=== PATIENT | female | born 1945 | race Caucasian/White ===

== ENCOUNTER → 2018-02-05 07:30 | Outpatient (CLI) | payer OTHER, SELFPAY ==
[2018-02-05 07:57] LABS: Add Manual Diff / Slide Review NO; Basophils Percent Auto 1.3 % (0-2); Eosinophils Percent Auto 3.4 % (2-4); Hemoglobin 14.7 g/dL (12.0-16.0); Lymphocytes Percent Auto 39.1 % (25-40); Mean Corpuscular HGB Conc 34.2 % (30-36); Mean Corpuscular Hemoglobin 29.2 PG (26-34); Mean Corpuscular Volume 85.5 fL (80-100); Monocytes Percent Auto 10.9 % (3-14); Neutrophils Absolute Auto 2400 /uL (3000-5900); Neutrophils Percent Auto 45.3 % (50-75); Platelet Count 173 X10^3/uL (150-400); Red Blood Cell Count 5.03 X10^6/uL (4.0-5.2); White Blood Cell Count 5.4 X10^3/uL (4.5-11.0)
[2018-02-05 08:14] LABS: Carbon Dioxide 30 mmol/L (22-32); Chloride 108 mmol/L (98-107); HEMOLYSIS < 15 (0-50); Sodium 146 mmol/L (137-145)
== END ==
PROVIDERS: Visit Provider Orthopaedic Surgery
DX: Z01.818 Encounter for other preprocedural examination (principal); Z01.812 Encounter for preprocedural laboratory examination; I10 Essential (primary) hypertension
CPT/HCPCS: 36415; 80051; 85025; 93005

== ENCOUNTER 2018-03-01 07:42 | Inpatient (IN) | payer OTHER, SELFPAY ==
[2018-02-11 09:03] VITALS: BMI 35.7
[2018-03-01] VITALS (13 sets, daily range): BP systolic 95–136; BP diastolic 56–77; PULSE 57–70; RESP 8–20; TEMP 35.8–37.2; O2SAT 92–97; BMI 35.7
--- NOTE | 2018-03-01 06:30 | DI.RAD.S_ITS ---
PROCEDURE: XR KNEE RT 1TO2V INDICATIONS: post operative right knee TECHNIQUE: 2 view(s) of the knee acquired. COMPARISON: [facility] [place], [place], XR KNEE STANDING BILATERAL, 01/10/2018, 10:08. FINDINGS: Bones: Patient is status post knee joint arthroplasty. Hardware components are in expected positions. Visualized bony structures are intact. Soft tissues: Overlying postoperative changes are noted. Skin talon are seen overlying anterior margin of the knee. Expected there is a soft tissue edema and air are noted. No unexpected radiopaque foreign bodies are apparent. IMPRESSION: Expected postsurgical changes related to a total right knee arthroplasty. Dictated by: Levi Simons M.D. on 03/01/2018 at 13:12 Approved by: Levi Simons M.D. on 03/01/2018 at 13:13
[2018-03-01] MEDS: LACTATED RINGERS 1,000 ML 42 ML IV (08:50)
[2018-03-01] MEDS: ACETAMINOPHEN 325 MG TABLET 975 MG PO ×3 (08:53→20:47)
[2018-03-01] MEDS: CELECOXIB 200 MG CAPSULE PO (08:53)
[2018-03-01] MEDS: PREGABALIN 75 MG CAPSULE PO (08:54)
--- NOTE | 2018-03-01 09:46 | PM.PREOP ---
Pre-operative Note Interval Note Pre-op Check: Yes History & Physical Reviewed by Physician and Yes Exam Performed Changes: No
--- NOTE | 2018-03-01 09:46 | PM.PREOP ---
Pre-operative Note Interval Note Pre-op Check: Yes History & Physical Reviewed by Physician and Yes Exam Performed Changes: No
--- NOTE | 2018-03-01 09:47 | PM.OP.1 ---
Operative Date/Time/Diagnoses Date of procedure: 03/01/18 Time of procedure: 12:28 Pre-op diagnosis: Right knee osteoarthritis Post-op diagnosis: same Procedure & Clinicians Procedure: Right total knee arthroplasty Same procedure as scheduled: Yes Indications: The patient presents today for total knee arthroplasty after failure of conservative treatment. The nature of the procedure including the risks and benefits, alternatives, postoperative course and expected outcome were discussed and all questions answered. Consent was obtained. Operative site confirmed and marked. Surgeon: Cordell Robertson University Extension Specialist: Zulma Tom Anesthesia Type: General, Spinal and Local Operative Notes Findings: Osteoarthritis Closure Type: primary Specimen(s): none sent Implants & Drains: Collado and Nephew Anam BCS: 7 femoral component, 5 tibial component, 9 mm BCS polyethylene tray and 32 x 9 mm round patella Applied: implant(s) Estimated Blood Loss (mL): 50 Blood products transfused: none Tourniquet time (min): 28 Procedure in detail: The patient was taken to the operative suite and placed under spinal anesthesia. The patient was given prophylactic antibiotics prior to surgery. The patient was also given tranexamic acid, 1 g, just prior to surgery for postoperative hemostasis. The lateral knee was prepped and the joint injected with 20 mL of 1% Lidocaine with epinephrine. The knee was then prepped and draped in usual sterile fashion. The leg was exsanguinated with an Esmarch dressing and the tourniquet raised to 250 torr. A 15 cm anterior incision was made. Next a medial trivector arthrotomy was made. The extensor mechanism was marked to ensure accurate repair. Initial exposing dissection was carried out medially and laterally. The knee was then extended and the patellar thickness was measured and a cut made removing approximately 9 mm of bone. The patella was then sized and drilled. Some excess lateral bone was excised and the patellofemoral ligament released. The knee was then flexed and the intramedullary femoral guide jr placed. The distal femoral cut was made in 6 ? of valgus at the + 0 position. The femoral size was measured and the appropriate cutting block was then placed and the anterior, posterior and chamfer cuts made. The extra medullary tibial alignment jr was then placed along the anatomic axis of the tibia appropriating the normal slope. The guide was set to remove approximately 8 mm from the less affected medial side. The proximal tibial cut was then made with an oscillating saw. All meniscus and bony debris was then removed. Flexion extension gaps were checked. The knee was extremely tight laterally especially in extension. A fairly extensive release of the lateral tissues was done using a 15 blade in a pie crust technique. This nicely balance the knee in flexion and extension. The soft tissues were then injected with a combination of 20 mL of half percent Marcaine with epinephrine and 20 mL of Exparel. The trial components were then placed. The knee went into full extension and flexion beyond 120?. There was excellent medial- lateral balance throughout motion. Patellar tracking was excellent. The trial components were removed and the knee was cleansed with Pulsavac irrigation and dried. The final components were cemented in with high viscosity vacuum mixed bone cement with antibiotics. The knee was held in extension and the patellar clamp until the cement had adequately cured. The knee was irrigated and inspected for any further debris. The knee was then irrigated with dilute Betadine solution. The extensor mechanism was closed with 5 interrupted #1 Vicryl sutures in 90 degrees of flexion. The joint was then injected with a combination of 1 g of tranexamic acid and 20 mL of quarter percent Marcaine with epinephrine. The subcutaneous tissue was closed with 2-0 Vicryl. The skin was closed with talon and surgical adhesive. An Aquacell dressing and Dany wrap were then applied. The patient tolerated the procedure well and was returned to recovery room in good condition. Condition: stable Disposition: PACU Plan for aftercare: Standard postoperative protocol for total knee arthroplasty.
[2018-03-01] MEDS: CLINDAMYCIN 900 MG/50 ML PIGGYBACK 50 MG IV (10:59)
[2018-03-01] MEDS: TRANEXAMIC ACID 1,000 MG VIAL 2000 MG INJ (11:05)
[2018-03-01] MEDS: LIDOCAINE 1% W/EPI INJ 20 ML INJ (11:10)
--- NOTE | 2018-03-01 11:42 | SUR.OPER ---
Supine on padded OR bed. Pillow under head, arms secured on padded armboards <90 degree abduction. Safety belt across torso. Non-operative leg secured with tape over blanket over lower leg. Operative leg secured in DeMayo/Kush positioner. Foam padded brace at thigh of operative leg.
[2018-03-01] MEDS: BUPIVACAINE LIPOSOME 266 MG/20 ML VIAL INJ (11:52)
[2018-03-01] MEDS: POVIDONE-IODINE 15 ML, SODIUM CHLORIDE 0.9% 250 ML TOP (11:55)
[2018-03-01] MEDS: BUPIVACAINE 0.5% W/ EPI (PF) 10 ML, TRANEXAMIC ACID 1,000 MG, SODIUM CHLORIDE 0.9% 20 ML INJ (12:00)
[2018-03-01] MEDS: BUPIVACAINE 0.5% W/ EPI (PF) 20 ML, BUPIVACAINE LIPOSOME 266 MG, SODIUM CHLORIDE 0.9% 8... INJ (12:00)
--- NOTE | 2018-03-01 13:22 | SUR.PHASEI ---
tOTAL IV FLUID 1400ML LR.
--- NOTE | 2018-03-01 14:09 | PC.NURSE ---
1345 Pt arrived from PACU via bed post op TKA. Pt A & O X3. Family at bedside. Pt has a saline lock. scd placed on BLE. Pt has a pacemaker, placed in 2013. Pt unable to move toes yet right foot. 1415, reported off to JAMES Billy.
[2018-03-01] MEDS: LACTATED RINGERS 1,000 ML 125 ML IV ×2 (14:26→23:49)
[2018-03-01] MEDS: ONDANSETRON 4 MG/2 ML INJ IV ×2 (14:27→22:35)
--- NOTE | 2018-03-01 15:58 | PT.IIE ---
Current Diagnoses Unilateral primary osteoarthritis, right knee (03/01/18) Surgery Performed Operation Date: 03/01/18 10:00 Actual Procedures p Total Knee Arthroplasty(Right) - Cordell Robertson MD Surgical History (Last Updated 02/12/18 @ 09:19 by Xiao Rose, RN) H/O cardiac radiofrequency ablation (Acute ~2013) H/O: (Acute) History of bladder suspension procedure (Acute) Medical History (Last Updated 02/12/18 @ 09:28 by Xiao Rose RN) Arthritis (Acute) Atrial flutter (Acute ~03/2012) Bruises easily (Acute) Cataract (lens) fragments in eye following cataract surgery, bilateral (Acute) Cholelithiasis (Acute) Collar bone fracture (Acute) Constipation (Acute) Diverticulitis (Acute) GERD (gastroesophageal reflux disease) (Acute) History of colitis (Acute) History of hypothyroidism (Acute) History of hysterectomy (Acute) Hyperlipidemia (Acute) Hypertension (Acute) Laceration of head (Acute) Mobitz II (Acute) Pacemaker (Acute ~07/2012) Paroxysmal A-fib (Acute) Shingles (herpes zoster) polyneuropathy (Acute) Staph infection (Acute) Physical Therapy Inpatient Evaluation/Re-Eval M1 PT/OT-IP Prior Functional Status Start: 03/01/18 17:40 Freq: Status: Active Protocol: Document 03/01/18 15:58 RCC (Rec: 03/01/18 17:54 [facility] [email or web address]) Medical Review Prior Functional Status Medical History Reviewed Yes Communication WNL Mobility and Gait indep. ambulator without device Activities of Daily Living and IADL's indep. ADLs Social History Household Members spouse Living Arrangements House Number of Floors (Floors) One Floor Number of Stairs To Enter/Railing? one step up to enter/exit (6-7 ) Home Equipment Front Wheel Walker Additional Social History Comment [employer]. M2 PT-IP Current Condition Start: 03/01/18 17:40 Freq: Status: Active Protocol: Document 03/01/18 15:58 RCC (Rec: 03/01/18 17:54 RCC [email or web address]) Physical Therapy Current Condition Current Condition Evaluation Date 03/01/18 Treatment Diagnosis R TKA 03/01/18, impaired mobility and gait Onset Date 03/01/18 Weight Bearing Status Weight Bearing Status Weight Bear as Tolerated M3 PT-IP Subjective Start: 03/01/18 17:40 Freq: Status: Active Protocol: Document 03/01/18 15:58 RCC (Rec: 03/01/18 17:54 [facility] [email or web address]) Subjective Physical Therapy Visit Type Type Initial Evaluation Visit Start Time 15:20 Visit Stop Time 15:58 Total Visit Minutes 38 Number of CRISIS INTERVENTION COUNSELOR Visits 0 Physical Therapy Visit Comments Patient Comments Pt denies pain at this time Patient Goals to be able to safely go home Therapy Pain Assessment Pain Present Pain Present Denied Pain M4 PT-IP Mobility and Gait Start: 03/01/18 17:40 Freq: Status: Active Protocol: Document 03/01/18 15:58 RCC (Rec: 03/01/18 17:54 RCC [email or web address]) PT-Bed Mobility Assessment Supine to Sit Supine to Sit Moderate Assistance 1 Person Assistance Sit to Supine Sit to Supine Moderate Assistance 1 Person Assistance Scooting Scooting to Edge of Bed Contact Guard Assistance PT-Transfer Assessment Sit to and From Stand Sit to and from Stand Contact Guard Assistance 1 Person Assistance Use of Upper Extremities Equipment Transfer Assistive Device Gait Belt Front Wheeled Walker Comments Mobility Comments pt c/o dizziness upon standing , requested to sit back down. Pt then taken sit to supine and BP checked immediately ( 129/70, VA 60 bpm). BP supine before session 121/ 73, VA 60 bpm BP sitting 128/74, VA 61 bpm No c/o dizziness at rest, mild in sitting but subsided <30 sec, high levels of dizziness in standing. Gait Assessment Comments Gait Comments unable to perform d/t dizziness PT-Balance Assessment Standing Balance and Reactions Static Standing Balance Ability Good Dynamic Standing Balance Ability Fair Device Used FWW M5 PT-IP Objective Assessments Start: 03/01/18 17:40 Freq: Status: Active Protocol: Document 03/01/18 15:58 [facility] (Rec: 03/01/18 17:54 [facility] [email or web address]) Orientation Orientation/Cognition Level of Alertness Alert Orientation Name Age Birthday Month Date Year Day of Week Place Situation Gross Range of Motion Lower Extremity ROM Assessment Right Impaired Impairments R knee AROM 8-90 degrees Strength Lower Extremity Strength Assessment Right Impaired Hip flexion 3+/5 Knee flexion 3/5, extension 3/5 Ankle DF 4/5 Sensation Assessment Sensation Light Touch Impaired Comments Sensation Comments impaired in the R toes, but able to flex/extend them M6 PT-IP Treatment Start: 03/01/18 17:40 Freq: Status: Active Protocol: Document 03/01/18 15:58 RCC (Rec: 03/01/18 17:54 RCC [email or web address]) Physical Therapy Treatment Exercises Exercises Ankle Pumps Quad Sets Short Arc Quads Education Education Provided Post-Op Packet Safety M7 PT-IP Assessment and Plan Start: 03/01/18 17:40 Freq: Status: Active Protocol: Document 03/01/18 15:58 RCC (Rec: 03/01/18 17:54 RCC [email or web address]) PT Summary Assessment and Plan Potential Rehabilitation Potential Good Status of Condition at Evaluation Evolving Summary Impairments Pain ROM Strength Balance Bed Mobility Transfers Gait Activity Tolerance Assessment Summary Same day post-op R TKA. Pt was able to lift her RLE off of the bed with a SLR, but required manual assistance for bed mobility. She had mild dizziness in sitting but subsided rapidly, but c/o high levels of dizziness upon standing. Her BP was WNL the entire session, however, given her state of dizziness she was unable to ambulate this session. Family appears to have some concern about d/c too early during this hospital stay. Pt will need to be able to ambulate safe household distances and manage a step up /down before being cleared by PT. Expect her to be able to d /c home, but possibly POD #3 vs POD #2 if unable to achieve goals. Goals Bed Mobility Goal Contact Guard Assistance Transfer Goal Standby Assistance Gait Goal Standby Assistance Gait Distance 150 Other Goals up/down 1 step up with CGA and FWW Days to Meet Goals 2 Frequency of Treatment Frequency Of Treatment Twice a Day Treatment Plan Physical Therapy Treatment Plan Bed Mobility Training Transfer Training Gait Training Therapeutic Exercise Balance Retraining Post Op Education Discharge Planning Hot or Cold Pack Neuromuscular Re-ed Manual Therapy Other Recommendations and Next Treatment gait, bed mobility, CG Focus training and step up training prior to d/c. Recommendations To Nursing Amount of Assist Needed 1 Person Assist Discharge Recommendations PT Discharge Recommendations Home with Assistance Outpatient PT
[2018-03-01] MEDS: LORATADINE 10 MG TABLET PO (17:13)
[2018-03-01] MEDS: CLINDAMYCIN 600 MG/50 ML PIGGYBACK 50 MG IV (19:27)
[2018-03-01] MEDS: FLECAINIDE 100 MG TABLET 150 MG PO (20:47)
[2018-03-01] MEDS: ASPIRIN EC 81 MG TABLET PO (20:47)
--- NOTE | 2018-03-01 22:43 | PC.NURSE ---
03/013: pt alert and oriented x4, VSS, BP was slightly low early in shift, held metropolol. Needed some supplemental O2 early in shift but was able to wean off by end of shift, 94-95% on RA. Incentive spirometer at bedside and pt has been utilizing properly. Pt without void as of 1999, bladder scan performed with >680ml reported, had pt try to void on bedpan, unsuccessful, straight cath performed with 900ml out. Denied pain this shift, did complain of some nausea after rolling in bed to side, zofran administered.
[2018-03-02 00:04] VITALS: BP 109/56; PULSE 60; RESP 18; TEMP 36.3; O2SAT 92
[2018-03-02] MEDS: CLINDAMYCIN 600 MG/50 ML PIGGYBACK 50 MG IV (02:52)
[2018-03-02] MEDS: IBUPROFEN 600 MG TABLET PO ×2 (03:11→13:39)
[2018-03-02 06:07] VITALS: BP 100/56; PULSE 72; RESP 18; TEMP 36.3; O2SAT 92
[2018-03-02 06:16] LABS: Hematocrit 37.8 % (36-46); Hemoglobin 12.8 g/dL (12.0-16.0)
[2018-03-02 08:00] VITALS: BP 125/67; PULSE 72; RESP 16; TEMP 36.1; O2SAT 97
[2018-03-02] MEDS: LEVOTHYROXINE 125 MCG TABLET PO (08:34)
[2018-03-02] MEDS: ACETAMINOPHEN 325 MG TABLET 975 MG PO (08:34)
[2018-03-02] MEDS: POLYETHYLENE GLYCOL 3350 17 GM POWD.PACK PO (08:35)
[2018-03-02] MEDS: FLECAINIDE 100 MG TABLET 150 MG PO (08:35)
--- NOTE | 2018-03-02 08:44 | CM.DANOTE ---
Discharge Planning/Care Management DCP: assessment: Case received, EMR reviewed and met with pt's daughter Kenia/rooming in. Pt in bed and on phone. Introduced self and role. Pt is 72 year old female who admitted yesterday for a planned TKA. Surgeon: Dr. Robertson Payer: Michael ANDUJAR Pt was able to work with PT Fadi yesterday late afternoon but dizziness with sit to stand did limit what she could do. P: pt does plan for home and outpt PT when she is stable for that setting. Family will provide supportive care. Will follow prn for any needs that may arise. CM Discharge Assessment Start: 03/02/18 08:40 Freq: Status: Active Protocol: Document 03/02/18 08:40 ITV (Rec: 03/02/18 08:43 ITV [email or web address]) Discharge Planning Assessment History Provided By Patient Family Member Medical Record Prior Living Arrangements House Household Members spouse Comment peter Aquino will be helping out after d/c Independent with ADL's Yes Is patient alert and oriented? Yes DME Already Rented / Owned FWW / Walker Comment has FWW in prep for this surgery Whiteboard Updated in Patient Room with Yes name and ext. # of Corporate Librarian Review Status In Process Next Review Type Continued Stay Review Pre-Anesthesia Assessment Start: 02/11/18 09:03 Freq: Status: Active Protocol: Document 02/11/18 09:03 VLJ (Rec: 02/11/18 09:24 VLJ [email or web address]) Pre-Anesthesia Assessment Patient Also Known As (STAN Garcia Patient Information Reviewed Via Chart Review On-site Review Phone Assessment Lab Results CBC EKG Electrolytes Primary Care Provider Mirna Maria Seen Specialist in Last 12 Months Yes Specialist Seen Load Blocker Orthopedist Urologist Primary Language Telugu Delivery Recruiter Required No Height 166.37 cm Weight 98.883 kg Body Mass Index (BMI) 35.7 Hearing Ability Normal Visual Impairment Partially Limited Visual Assist Glasses Dentition Type Teeth, Natural Present Barriers to Learning Visual Other Aids No Comment Reading glasses Hx Anesthesia Reactions Yes: Paralyzed 24hours post c- section Hx Family Anesthesia Reaction No Hx Malignant Hyperthermia No Hx Blood Transfusions No Anesthesia Review Requested No Banking Teacher No alcohol intake never Smoking Status Never smoker Substance Use Type does not use Pain Present Pain Reported Comment Right knee depends on activity ; diverticuli - abd pain Musculoskeletal Symptoms Abnormal Gait Difficulty Walking Joint Pain Joint Swelling History of Falling (Recent or History of Yes ) Patient is completely paralyzed or No completely immobile Ambulatory Aid None/bed rest/nurse assist Gait/Transferring Normal/bedrest/immobile Mental Status Oriented to own ability Comment Right side doesn't work right , fell getting out of boat Is patient on oxygen? No Does patient have CARPENTER/SOB Yes: When climbing stairs Hx Sleep Apnea No Currently Taking a Beta Len Yes: Metoprolol Can You Climb a Flight of Stairs Without No SOB Hx Chest Pain No Hx SOB Yes Hx Syncope or Dizziness No Anti-Coagulant Therapy Yes: Aspirin - will check w/ manager packaging for instr Has a Load Blocker Yes: Dr. Burdick Cardiac Testing Yes: Echo & Stress 12/06 WNL Hx Pacemaker/ICD Yes: Form to chart, no rep needed Pacemaker Rep Required? No Diet Type At Home Regular Low Carb Low Fat dysphagia No Bladder Pattern Frequency Incontinent, Stress Nocturia Urgency Urinary Catheter Present No Hx Urinary Self Catheterization No Diabetes No Patient No Lactating No Hx Drug Resistant Organism No Presence of External or Internal Medical Yes: Pacemaker Devices Comment Dental implant Have you traveled outside the [facility] in the last 30 days? Marital Status Lives With spouse Prior Living Arrangements House Number of Floors (Floors) One Floor Number of Stairs To Enter/Railing? 1 step into house, no rail Support System Child/Children Spouse Does the Patient Have Assistance After Yes Surgery Patient Discharge Plan Description Return Home Feels Safe in Current Environment Yes Been Physically Hurt or Threatened By a No Person in Current Environment Do you have thoughts of harming yourself None or others? Are you currently considering suicide? No Do you have a plan to hurt yourself or No Plan others? Do You Have Any Spiritual Beliefs That No May Affect Your HC Choices? Do You Have Any Cultural Practices That No May Affect Your HC Choices? Spiritual Referral None Comment Synagogue Who Can We Speak to About Patient's Care Friends & Family Identifying Code for Release of Patient Declined Information Health Care Proxy/Next of Kin - Saúl Allenulises Health Care Proxy Phone Number [phone] H; [phone] C Emergency Contact Name Same, Son Newton Garner [phone] Emergency Contact Phone Number Same Advance Directives? No Power of Procedure Rn Yes: Saúl lauro Glez Power of Procedure Rn Name As above PAC Instructions Assistance for 24 hours post- op Do not shave/clip surgical site Durable medical equipment Medications to take/avoid Nasal antibiotic No ETOH/petroleum product on skin DOS NPO Ortho class Post-op transportation Pre-op antibiotic Pre-surgical wash Sensory aids Sturdy shoes/comfortable clothes Do not bring valuables and remove jewelry Comment check-in [id number]
[2018-03-02] MEDS: POTASSIUM CHLORIDE 20 MEQ TAB PO (09:00)
[2018-03-02] MEDS: ASPIRIN EC 81 MG TABLET PO (09:00)
--- NOTE | 2018-03-02 11:00 | PT.IPTN ---
Current Diagnoses Unilateral primary osteoarthritis, right knee (03/01/18) Surgery Performed Operation Date: 03/01/18 10:00 Actual Procedures p Total Knee Arthroplasty(Right) - Cordell Robertson MD Physical Therapy Treatment Note M2 PT-IP Current Condition Start: 03/01/18 17:40 Freq: Status: Active Protocol: Document 03/01/18 15:58 RCC (Rec: 03/01/18 17:54 RCC [email or web address]) Physical Therapy Current Condition Current Condition Evaluation Date 03/01/18 Treatment Diagnosis R TKA 03/01/18, impaired mobility and gait Onset Date 03/01/18 Weight Bearing Status Weight Bearing Status Weight Bear as Tolerated M3 PT-IP Subjective Start: 03/01/18 17:40 Freq: Status: Active Protocol: Document 03/02/18 10:48 SA (Rec: 03/02/18 11:00 SA [email or web address]) Subjective Physical Therapy Visit Type Type Treatment Note Visit Start Time 10:10 Visit Stop Time 10:40 Total Visit Minutes 30 Notes Pt agreeable to PT, family/ caregivers present for treatment. No dizziness with standing today. Number of PASSENGER CONDUCTOR Visits 1 Physical Therapy Visit Comments Patient Comments Pt denied pain at rest. Therapy Pain Assessment Pain When Pain Assessed During Mobility Pain Present Pain Present Pain Reported Location Right Knee Intensity 2 Scale Used Numeric (1 - 10) Pain Management Techniques Apply Cold Re-positioning M4 PT-IP Mobility and Gait Start: 03/01/18 17:40 Freq: Status: Active Protocol: Document 03/02/18 10:48 SA (Rec: 03/02/18 11:00 SA [email or web address]) PT-Bed Mobility Assessment Rolling Type of Rolling Roll to Right Supine to Sit Supine to Sit Contact Guard Assistance Sit to Supine Sit to Supine Contact Guard Assistance 1 Person Assistance Bedrails Scooting Scooting to Edge of Bed Contact Guard Assistance Scooting Up and Down in Bed Standby Assistance PT-Transfer Assessment Sit to and From Stand Sit to and from Stand Contact Guard Assistance 1 Person Assistance Use of Upper Extremities Equipment Transfer Assistive Device Gait Belt Front Wheeled Walker Orthotic/Prosthetic Devices or Brace: No Transfers Transfer Destination Chair Toilet Transfer Technique Stand Step Pivot Transfer Ability Level of Assist Contact Guard Assistance Comments Mobility Comments PT denied dizziness today, CGA with stand pivot transfers on /off toilet and on/off chair. Mod cues for safe technique and use of FWW. Gait Assessment Gait Gait Assistance Required: Contact Guard Assist Distance (Feet) 20 Assistive Devices Assistive Device Front Wheeled Walker Orthotic/Prosthetic Devices or Brace: No Gait Deviations General Gait Pattern Decreased Stride Length Decreased Feet Clearance Step-to Gait Factors Limiting Gait Function Factors Limiting Gait Function Decreased Activity Tolerance Decreased Strength Limited Range of Motion Comments Gait Comments Gaot trainng in room 20 feet x 4 with seated rest breaks between and cues for increased L step length/foot clearance. M5 PT-IP Objective Assessments Start: 03/01/18 17:40 Freq: Status: Active Protocol: Document 03/01/18 15:58 RCC (Rec: 03/01/18 17:54 RCC [email or web address]) Orientation Orientation/Cognition Level of Alertness Alert Orientation Name Age Birthday Month Date Year Day of Week Place Situation Gross Range of Motion Lower Extremity ROM Assessment Right Impaired Impairments R knee AROM 8-90 degrees Strength Lower Extremity Strength Assessment Right Impaired Hip flexion 3+/5 Knee flexion 3/5, extension 3/5 Ankle DF 4/5 Sensation Assessment Sensation Light Touch Impaired Comments Sensation Comments impaired in the R toes, but able to flex/extend them M6 PT-IP Treatment Start: 03/01/18 17:40 Freq: Status: Active Protocol: Document 03/02/18 10:48 SA (Rec: 03/02/18 11:00 SA [email or web address]) Physical Therapy Treatment Exercises Exercises Ankle Pumps Gluteal Sets Quad Sets Heel Slides Seated Knee Flexion/Extension Education Education Provided Post-Op Packet Safety M7 PT-IP Assessment and Plan Start: 03/01/18 17:40 Freq: Status: Active Protocol: Document 03/02/18 10:48 SA (Rec: 03/02/18 11:00 SA [email or web address]) PT Summary Assessment and Plan Potential Rehabilitation Potential Good Status of Condition at Evaluation Evolving Frequency of Treatment Frequency Of Treatment Twice a Day Treatment Plan Physical Therapy Treatment Plan Bed Mobility Training Transfer Training Gait Training Therapeutic Exercise Balance Retraining Post Op Education Discharge Planning Hot or Cold Pack Neuromuscular Re-ed Manual Therapy Other Recommendations and Next Treatment Single step to enter home, Focus attempt step up/down training. Recommendations To Nursing Amount of Assist Needed 1 Person Assist Discharge Recommendations PT Discharge Recommendations Home with Assistance Outpatient PT
--- NOTE | 2018-03-02 11:08 | PM.PNPO.1 ---
Subjective Date Patient Seen: 03/02/18 Time Patient Seen: 11:08 Interval history: POD #1 status post right total knee arthroplasty with Dr. Robertson. Pain is well controlled. Patient has been up with physical therapy yesterday but not this morning. Exam Vital Signs (past 8 hours): - 03/02/18 06:07 03/02/18 08:00 Temperature 97.4 F L 96.9 F L Pulse Rate 72 72 Respiratory Rate 18 16 Blood Pressure 100/56 L 125/67 Pulse Oximetry 92 97 Fraction of Inspired Oxygen 21 Oxygen Delivery Method Room Air Oxygen Flow Rate 0 Narrative Exam Narrative: Patient lying in bed in no acute distress. She is alert and oriented x3. Dressing is CDI. Calves are soft, compressible, nontender bilaterally. Sensation intact to light touch throughout bilateral lower extremities. Pulses are symmetrical. Objective Labs Result Diagrams: 03/02/18 05:41 Labs: Laboratory Results - last 24 hr 03/02/18 05:41 Hgb 12.8 Hct 37.8 Assessment & Plan Post-op (1) S/P total knee arthroplasty: Current Visit: Yes Status: Acute Postoperative Procedures Operation Date: 03/01/18 10:00 Actual Procedures Side Surgeon p Total Knee Arthroplasty Right Cordell Robertson MD POD #1 status post right total knee arthroplasty with Dr. Robertson. Continue current pain control. Will mobilize with physical therapy. Likely discharge today or tomorrow depending on pain control and mobilization. Quality VTE Deep Vein Thrombosis/Pulmonary Embolism Present on Admission: No
[2018-03-02 12:43] VITALS: BP 116/58; PULSE 70; RESP 16; TEMP 36.3; O2SAT 96
[2018-03-02] MEDS: diphenhydrAMINE 25 MG TABLET PO (13:39)
--- NOTE | 2018-03-02 13:50 | PT.IPTN ---
Current Diagnoses Unilateral primary osteoarthritis, right knee (03/01/18) Presence of unspecified artificial knee joint (03/01/18) Surgery Performed Operation Date: 03/01/18 10:00 Actual Procedures p Total Knee Arthroplasty(Right) - Cordell Robertson MD Physical Therapy Treatment Note M2 PT-IP Current Condition Start: 03/01/18 17:40 Freq: Status: Active Protocol: Document 03/01/18 15:58 RCC (Rec: 03/01/18 17:54 RCC [id number]) Physical Therapy Current Condition Current Condition Evaluation Date 03/01/18 Treatment Diagnosis R TKA 03/01/18, impaired mobility and gait Onset Date 03/01/18 Weight Bearing Status Weight Bearing Status Weight Bear as Tolerated M3 PT-IP Subjective Start: 03/01/18 17:40 Freq: Status: Active Protocol: Document 03/02/18 13:50 GGD (Rec: 03/02/18 14:48 GGD [id number]) Subjective Physical Therapy Visit Type Type Treatment Note Visit Start Time 13:25 Visit Stop Time 13:50 Total Visit Minutes 25 Number of ASPHALT DISTRIBUTOR TENDER Visits 2 Physical Therapy Visit Comments Patient Comments Pt states she would like to go home. Therapy Pain Assessment Pain When Pain Assessed During Mobility Pain Present Pain Present Pain Reported Location Right Knee Intensity 4 Scale Used Numeric (1 - 10) M4 PT-IP Mobility and Gait Start: 03/01/18 17:40 Freq: Status: Active Protocol: Document 03/02/18 13:50 GGD (Rec: 03/02/18 14:48 GGD [id number]) PT-Transfer Assessment Sit to and From Stand Sit to and from Stand Contact Guard Assistance 1 Person Assistance Use of Upper Extremities Equipment Transfer Assistive Device Gait Belt Front Wheeled Walker Orthotic/Prosthetic Devices or Brace: No Transfers Transfer Destination Chair Gait Assessment Gait Gait Assistance Required: Contact Guard Assist Distance (Feet) 60 Able to Maintain Weight Bearing Status Yes During Gait Assistive Devices Assistive Device Front Wheeled Walker Orthotic/Prosthetic Devices or Brace: No Gait Deviations General Gait Pattern Antalgic Decreased Stride Length Decreased Feet Clearance Factors Limiting Gait Function Factors Limiting Gait Function Decreased Activity Tolerance Decreased Strength Limited Range of Motion Pain Poor Balance Stair Climbing Assessment Evaluation Level of Assist On Stairs Contact Guard Assistance Devices Stair Climbing Assistive Devices Front Wheel Walker Technique/Endurance Stair Climbing Direction Ascend and Descend Stair Climbing Technique Step to Step Number of Steps Climbed 1 Query Text: Stair Climbing Set # Repetitions (reps) 2 Comments Stair Climbing Comments Pt need mod cues for stair sequences. M5 PT-IP Objective Assessments Start: 03/01/18 17:40 Freq: Status: Active Protocol: Document 03/01/18 15:58 RCC (Rec: 03/01/18 17:54 RCC [id number]) Orientation Orientation/Cognition Level of Alertness Alert Orientation Name Age Birthday Month Date Year Day of Week Place Situation Gross Range of Motion Lower Extremity ROM Assessment Right Impaired Impairments R knee AROM 8-90 degrees Strength Lower Extremity Strength Assessment Right Impaired Hip flexion 3+/5 Knee flexion 3/5, extension 3/5 Ankle DF 4/5 Sensation Assessment Sensation Light Touch Impaired Comments Sensation Comments impaired in the R toes, but able to flex/extend them M6 PT-IP Treatment Start: 03/01/18 17:40 Freq: Status: Active Protocol: Document 03/02/18 13:50 GGD (Rec: 03/02/18 14:48 GGD [id number]) Physical Therapy Treatment Exercises Exercises Ankle Pumps Seated Knee Flexion/Extension M7 PT-IP Assessment and Plan Start: 03/01/18 17:40 Freq: Status: Active Protocol: Document 03/02/18 13:50 GGD (Rec: 03/02/18 14:48 GGD [id number]) PT Summary Assessment and Plan Summary Assessment Summary Pt was safe and stable with gait and stair mobility. She did need cues for stair mobility and director of healthcare systems was able to assist. Pt had no unsteadiness with gait. Frequency of Treatment Frequency Of Treatment Twice a Day Treatment Plan Physical Therapy Treatment Plan Bed Mobility Training Transfer Training Gait Training Therapeutic Exercise Balance Retraining Post Op Education Discharge Planning Hot or Cold Pack Neuromuscular Re-ed Manual Therapy Other Recommendations and Next Treatment Single step to enter home, Focus attempt step up/down training. Recommendations To Nursing Amount of Assist Needed 1 Person Assist Discharge Recommendations PT Discharge Recommendations Home with Assistance Outpatient PT
--- NOTE | 2018-03-02 14:51 | PC.NURSE ---
Discharge Note: Pt dressed, IV d/c'd, and daughter present in the room, discussed d/c medications and directions on when to take them, also discussed discharge instructions and given packet of information to follow all precautions, encouraged to drink plenty of water to prevent constipation. Out via wheelchair by RN to POV with and daughter with all belongings.
== END 2018-03-02 14:30 | disposition home or self-care (01) | DRG 470 ==
PROVIDERS: Admitting Provider Orthopaedic Surgery; Visit Provider Orthopaedic Surgery
PROC: 0SRC0JZ Replacement of Right Knee Joint with Synthetic Substitute, Open Approach (ICD-10-PCS; CPT 27447; principal; 2018-03-01 10:00)
DX: M17.11 Unilateral primary osteoarthritis, right knee (principal); Z95.0 Presence of cardiac pacemaker; I10 Essential (primary) hypertension; E78.5 Hyperlipidemia, unspecified; I48.0 Paroxysmal atrial fibrillation
CPT/HCPCS: 36415; 73560; 85014; 85018; 94760; 94762; 97110; 97116; 97162; 97530; C1776; C9290; J1100; J2250; J2274; J2405; J2704; J3010

== ENCOUNTER 2018-09-18 08:37 | Inpatient (IN) | payer OTHER, SELFPAY ==
[2018-03-01 13:53] VITALS: BMI 35.7
[2018-09-13 13:59] VITALS: BMI 34.3
[2018-09-14 12:28] VITALS: BMI 34.3
[2018-09-18] VITALS (18 sets, daily range): BP systolic 108–130; BP diastolic 56–79; PULSE 65–92; RESP 12–21; TEMP 35.8–37; O2SAT 92–97; BMI 34.3
--- NOTE | 2018-09-18 08:56 | DI.RAD.S_ITS ---
PROCEDURE: XR KNEE RT 1TO2V INDICATIONS: right total knee TECHNIQUE: 2 view(s) of the knee acquired. COMPARISON: [facility], CR, XR TIBIA FIBULA RT 2V, 09/18/2018, 9:04. [facility], CR, XR KNEE RT 1TO2V, 03/01/2018, 13:03. FINDINGS: Bones: Patient is status post knee joint arthroplasty. Hardware components are in expected positions. Visualized bony structures are intact. Soft tissues: Overlying postoperative changes are noted. IMPRESSION: Left knee arthroplasty with prosthesis in anatomic alignment. Dictated by: Maeve Abel M.D. on 09/18/2018 at 17:06 Approved by: Maeve Abel M.D. on 09/18/2018 at 17:07
--- NOTE | 2018-09-18 08:56 | DI.RAD.S_ITS ---
PROCEDURE: XR TIBIA FUBULA RT 2V INDICATIONS: xray to be done upon admission. lower leg pain TECHNIQUE: 2 views of the tibia and fibula were acquired. COMPARISON: None. FINDINGS: Bones: There is prior right total knee arthroplasty. No acute fracture or dislocation. No gross hardware loosening or failure. Alignment of right lower leg is anatomic. No suspicious bony lesions. Soft tissues: No suspicious soft tissue calcifications or masses. IMPRESSION: No right lower leg fracture or dislocation. Prior right total knee arthroplasty. Dictated by: Randy Merida M.D. on 09/18/2018 at 9:39 Approved by: Randy Merida M.D. on 09/18/2018 at 9:45
[2018-09-18] MEDS: ACETAMINOPHEN 325 MG TABLET 975 MG PO ×3 (09:09→21:53)
[2018-09-18] MEDS: PREGABALIN 75 MG CAPSULE PO (09:10)
[2018-09-18] MEDS: LACTATED RINGERS 1,000 ML 42 ML IV ×2 (09:30→14:42)
--- NOTE | 2018-09-18 11:01 | PM.PREOP ---
Pre-operative Note Interval Note History & Physical reviewed/Exam performed by Physician: Yes Changes to H&P: No
[2018-09-18] MEDS: VANCOMYCIN 1,000 MG/200 ML FROZ.PIGGY 200 MG IV (11:05)
--- NOTE | 2018-09-18 11:19 | P.OP_ITS ---
Operative Date/Time/Diagnoses Date of procedure: 09/18/18 Time of procedure: 13:56 Pre-op diagnosis: Loosening of tibial component right total knee Post-op diagnosis: same Procedure & Clinicians Procedure: Revision of tibial component right total knee Same procedure as scheduled: Yes Indications: The patient presents today planned revision of tibial component of total knee with evidence of aseptic loosening. No indication of infection with aspiration. The nature of the procedure including the risks and benefits, alternatives, postoperative course and expected outcome were discussed and all questions answered. Consent was obtained. Operative site confirmed and marked. Surgeon: Cordell Robertson Poundmaster: Meghana Cedeno Anesthesia Type: General, Spinal and Local Operative Notes Findings: There was no evidence of any infection or inflammation within the knee. The tibial component was grossly loose and had subsided in further varus alignment. Once the trial tibial component was placed various polyethylene trays were trialed. I decided that a 12 mm tray which gave proper stability medially would be most appropriate. There was still some laxity laterally but I felt this was due to over release during the primary surgery. a constrained poly was put in which did correct the lateral laxity. Closure Type: primary Specimen(s): other (Tibial Tray and Poly) Prosthetic devices, grafts, tissues, transplants, or devices: Legion 5 tibia with 6 mm offset and 160 mm stem Applied: implant(s) Estimated Blood Loss (mL): 20 Blood products transfused: none Tourniquet time (min): 94 Procedure in detail: The patient was taken to the operative suite and placed under spinal and general anesthesia. The patient was given prophylactic antibiotics prior to surgery. The patient was also given tranexamic acid, 1 g, just prior to surgery for postoperative hemostasis. The lateral knee was prepped and the joint injected with 20 mL of 1% Lidocaine with epinephrine. The knee was then prepped and draped in usual sterile fashion. The leg was exsanguinated with an Esmarch dressing and the tourniquet raised to 250 torr. The previous 15 cm anterior incision utilized. Next a medial trivector arthrotomy was made. The extensor mechanism was marked to ensure accurate repair. Initial exposing dissection was carried out medially and laterally. There was no fluid or inflammation in the knee consistent with infection. Once all the releases were performed the femoral component could easily be retracted to allow full exposure of the proximal tibia. the tibial tray did seem grossly loose. This was easily freed with osteotomes with no further bone loss. The tibia had subsided into further varus. A femoral jr was placed down the canal. This was placed somewhat medially to account for her tibial flow. The proximal femoral cut was then made removing just a couple mm from the medial side and about 6-8 mm from the lateral side. A 6 mm offset was selected to get proper coverage. The proximal tibia was then prepared for a trial with 160 mm stem. A polyethylene tray was placed and the knee was trialed. There was some laxity laterally even with a 12 mm insert which was appropriate for the medial side. This was corrected with a constrained component. I did not want to perform a release medially as I thought the lateral side was overly released during the initial procedure. The soft tissues were then injected with a combination of 20 mL of half percent Marcaine with epinephrine and 20 mL of Exparel. The trial components were then placed. The knee went into full extension and flexion beyond 120?. There was excellent medial- lateral balance throughout motion. Patellar tracking was excellent. The trial tibia was removed and the knee was cleansed with Pulsavac irrigation and dried. The final tibial component were cemented in with high viscosity vacuum mixed bone cement with antibiotics. The knee was held in extension and the patellar clamp until the cement had fully cured. The knee was irrigated and inspected for any further debris. The knee was then irrigated with dilute Betadine solution. The extensor mechanism was closed with 5 interrupted #1 Vicryl sutures in 90 degrees of flexion. The joint was then injected with a combination of 1 g of tranexamic acid and 20 mL of quarter percent Marcaine with epinephrine. The subcutaneous tissue was closed with 2-0 Vicryl. The skin was closed with talon and surgical adhesive. An Aquacell dressing and Dany wrap were then applied. The patient tolerated the procedure well and was returned to recovery room in good condition. Complications: none Condition: stable Disposition: PACU Plan for aftercare: [facility] protocol for total knee arthroplasty.
--- NOTE | 2018-09-18 12:08 | SUR.OPER ---
Supine on padded OR bed. Pillow under head, arms secured on padded armboards <90 degree abduction. Safety belt across torso. Non-operative leg secured with tape over blanket over lower leg. Operative leg secured in Kush positioner. Foam padded brace at thigh of operative leg.
[2018-09-18] MEDS: LIDOCAINE 1% W/EPI INJ 20 ML INJ (12:13)
[2018-09-18] MEDS: BUPIVACAINE LIPOSOME 266 MG/20 ML VIAL INJ (12:14)
[2018-09-18] MEDS: BUPIVACAINE 0.25% W/ EPI (PF) 20 ML, TRANEXAMIC ACID 1,000 MG, SODIUM CHLORIDE 0.9% 10 ML INJ (12:15)
--- NOTE | 2018-09-18 14:43 | SUR.PHASEI ---
REPORT CALLED TO RN MARIAN, BEDSIDE REPORT AND HAND OFF OF CARE TO RN MARIAN.
[2018-09-18] MEDS: LACTATED RINGERS 1,000 ML 125 ML IV (16:07)
[2018-09-18] MEDS: ONDANSETRON 4 MG/2 ML INJ IV (16:09)
[2018-09-18] MEDS: FLECAINIDE 100 MG TABLET 150 MG PO (19:20)
[2018-09-18] MEDS: CEFAZOLIN 2 GM/100 ML FROZ.PIGGY IV (19:21)
[2018-09-18] MEDS: METOPROLOL ER 25 MG TABLET 12.5 MG PO (19:21)
[2018-09-18] MEDS: ASPIRIN EC 81 MG TABLET PO (21:53)
[2018-09-18] MEDS: OXYCODONE IR 5 MG TABLET PO (21:53)
[2018-09-19] MEDS: LACTATED RINGERS 1,000 ML 125 ML IV (00:36)
[2018-09-19] MEDS: CEFAZOLIN 2 GM/100 ML FROZ.PIGGY IV (02:57)
[2018-09-19 03:15] VITALS: BP 149/85; PULSE 59; RESP 16; TEMP 35.8; O2SAT 94
[2018-09-19] MEDS: OXYCODONE IR 5 MG TABLET PO ×3 (03:16→13:49)
[2018-09-19] MEDS: FLECAINIDE 100 MG TABLET 150 MG PO (03:17)
--- NOTE | 2018-09-19 03:46 | PC.NURSE ---
Pt using O2 while sleeping. O2 sats have been 93% 2 liters. CMS is intact, lungs sounds are clear. Pt had large incontinent void, full bedding and clothing change. After bladder scan there was only 28ml in bladder. Pt has pain 5/10 medicated w/ 5mg Oxycodone. Aquacell dressing is clean/dry and intact.
[2018-09-19 06:01] LABS: Hematocrit 40.4 % (36-46); Hemoglobin 13.4 g/dL (12.0-16.0)
[2018-09-19 08:00] VITALS: BP 126/68; PULSE 87; RESP 17; TEMP 36.2; O2SAT 96
[2018-09-19] MEDS: POTASSIUM CHLORIDE 20 MEQ TAB PO (09:03)
[2018-09-19] MEDS: METOPROLOL ER 25 MG TABLET PO (09:04)
[2018-09-19] MEDS: ASPIRIN EC 81 MG TABLET PO (09:05)
[2018-09-19] MEDS: MELOXICAM 7.5 MG TABLET 15 MG PO (09:06)
[2018-09-19] MEDS: ACETAMINOPHEN 325 MG TABLET 975 MG PO (09:06)
[2018-09-19 09:21] VITALS: O2SAT 98
[2018-09-19 09:22] VITALS: O2SAT 95
--- NOTE | 2018-09-19 09:35 | PT.IIE ---
Current Diagnoses Mechanical loosening of internal right knee prosthetic joint, subsequent encounter (09/18/18) Presence of right artificial knee joint (09/18/18) Surgery Performed Operation Date: 09/18/18 11:15 Actual Procedures p Total Knee Arthroplasty Revision(Right) - Cordell Robertson MD Surgical History (Last Updated 02/12/18 @ 09:19 by Xiao Rose, JAMES) H/O cardiac radiofrequency ablation (Acute ~2013) H/O: (Acute) History of bladder suspension procedure (Acute) Medical History (Last Updated 09/13/18 @ 14:04 by Supriya Smiley RN) Pneumonia (Acute 08/11/18) Arthritis (Acute) Atrial flutter (Acute ~03/2012) Bruises easily (Acute) Cataract (lens) fragments in eye following cataract surgery, bilateral (Acute) Cholelithiasis (Acute) Collar bone fracture (Acute) Constipation (Acute) Diverticulitis (Acute) GERD (gastroesophageal reflux disease) (Acute) History of colitis (Acute) History of hypothyroidism (Acute) History of hysterectomy (Acute) Hyperlipidemia (Acute) Hypertension (Acute) Laceration of head (Acute) Mobitz II (Acute) Pacemaker (Acute ~07/2012) Paroxysmal A-fib (Acute) Shingles (herpes zoster) polyneuropathy (Acute) Staph infection (Acute) Physical Therapy Inpatient Evaluation/Re-Eval M1 PT/OT-IP Prior Functional Status Start: 09/18/18 16:59 Freq: NEEDED Status: Active Protocol: Document 09/19/18 09:35 AB (Rec: 09/19/18 12:42 AB [id number]) Medical Review Prior Functional Status Medical History Reviewed Yes Communication able to make needs known Mobility and Gait pt staed that she is mod I with all mobilities and ambulation without AD but uses walking sticks for outdoor mobility. Social History Household Members spouse Living Arrangements House Number of Floors (Floors) One Floor Number of Stairs To Enter/Railing? 2 platform steps to enter Home Environment High Toilet Tub/Shower Home Equipment Front Wheel Walker Straight Cane Bedside Commode Hand Held Shower Grab Bars In Shower M2 PT-IP Current Condition Start: 09/18/18 16:59 Freq: NEEDED Status: Active Protocol: Document 09/19/18 09:35 AB (Rec: 09/19/18 12:42 AB [id number]) Physical Therapy Current Condition Current Condition Evaluation Date 09/19/18 Treatment Diagnosis s/p R TKA revision; difficulty in walking Onset Date 09/18/18 Weight Bearing Status Weight Bearing Status Weight Bear as Tolerated M3 PT-IP Subjective Start: 09/18/18 16:59 Freq: NEEDED Status: Active Protocol: Document 09/19/18 09:35 AB (Rec: 09/19/18 12:42 [id number]) Subjective Physical Therapy Visit Type Type Initial Evaluation Visit Start Time 09:35 Visit Stop Time 10:28 Total Visit Minutes 53 Number of ADVISORY SERVICES ASSOCIATE Visits 0 Physical Therapy Visit Comments Patient Comments pt agreeable to do PT Therapy Pain Assessment Pain When Pain Assessed At Rest Pain Present Pain Present Pain Reported Location Right Knee Intensity 4 Scale Used Numeric (1 - 10) Pain Management Techniques Apply Cold Re-positioning Timing of Activity with Medications M4 PT-IP Mobility and Gait Start: 09/18/18 16:59 Freq: NEEDED Status: Active Protocol: Document 09/19/18 09:35 AB (Rec: 09/19/18 12:42 [id number]) PT-Bed Mobility Assessment Supine to Sit Supine to Sit Standby Assistance Sit to Supine Sit to Supine Standby Assistance Scooting Scooting to Edge of Bed Standby Assistance PT-Transfer Assessment Sit to and From Stand Sit to and from Stand Standby Assistance Contact Guard Assistance Equipment Transfer Assistive Device Gait Belt Front Wheeled Walker Orthotic/Prosthetic Devices or Brace: No Transfers Transfer Destination Bed Transfer Technique Stand Step Pivot Transfer Ability Level of Assist Standby Assistance Contact Guard Assistance Use of Upper Extremities Gait Assessment Gait Gait Assistance Required: Standby Assistance Contact Guard Assist Distance (Feet) 100 Able to Maintain Weight Bearing Status Yes During Gait Assistive Devices Assistive Device Gait Belt Front Wheeled Walker Orthotic/Prosthetic Devices or Brace: No Gait Deviations General Gait Pattern Antalgic Decreased Stride Length Decreased Feet Clearance Factors Limiting Gait Function Factors Limiting Gait Function Decreased Activity Tolerance Decreased Strength Limited Range of Motion Pain Poor Balance Stair Climbing Assessment Evaluation Level of Assist On Stairs Contact Guard Assistance 1 Person Assistance Devices Stair Climbing Assistive Devices Front Wheel Walker Technique/Endurance Stair Climbing Direction Ascend and Descend Stair Climbing Technique Step to Step Number of Steps Climbed 1 Query Text: Stair Climbing Set # Repetitions (reps) 2 Comments Stair Climbing Comments caregiver training conducted. educated pt's daughter on how to assist pt with up/down platform step. daughter was able to assist pt safely. PT-Balance Assessment Sitting Balance and Reactions Static Sitting Balance Ability Good Dynamic Sitting Balance Ability Good Standing Balance and Reactions Static Standing Balance Ability Fair Dynamic Standing Balance Ability Fair Device Used FWW M5 PT-IP Objective Assessments Start: 09/18/18 16:59 Freq: NEEDED Status: Active Protocol: Document 09/19/18 09:35 AB (Rec: 09/19/18 12:42 AB [id number]) Orientation Orientation/Cognition Level of Alertness Alert Orientation Name Place Situation Language Function Ability Hard of Hearing Safety Awareness Decreased Safety Awareness Memory Description Short Term Impaired Gross Range of Motion Lower Extremity ROM Assessment Right Impaired Impairments R knee flexion ~ 80 deg R knee extension lacking ~ 10 deg to 0 Strength Lower Extremity Strength Assessment Right Impaired Hip 3+/5 Knee 3+/5 Coordination Assessment Gross Coordination Gross Coordination WNL Sensation Assessment Sensation Gross Sensation WNL Muscle Tone Muscle Tone WNL Yes M6 PT-IP Treatment Start: 09/18/18 16:59 Freq: NEEDED Status: Active Protocol: Document 09/19/18 09:35 AB (Rec: 09/19/18 12:42 AB [id number]) Physical Therapy Treatment Exercises Exercises Heel Slides Education Education Provided Precautions Weight Bearing Status Post-Op Packet Safety M7 PT-IP Assessment and Plan Start: 09/18/18 16:59 Freq: NEEDED Status: Active Protocol: Document 09/19/18 09:35 AB (Rec: 09/19/18 12:42 AB [id number]) PT Summary Assessment and Plan Potential Rehabilitation Potential Good Status of Condition at Evaluation Stable Summary Impairments Pain ROM Strength Balance Coordination Sensation Tone Cognition Bed Mobility Transfers Gait Activity Tolerance Assessment Summary pt requiring SBA to CGA with mobility. caregiver training conducted with pt's daughter. pt may go home when medically stable. Goals Bed Mobility Goal Independent Transfer Goal Independent Front Wheeled Walker Gait Goal Independent Front Wheel Walker Gait Distance 200 Other Goals up/down 2 platform steps SBA Days to Meet Goals 3 Frequency of Treatment Frequency Of Treatment Twice a Day Treatment Plan Physical Therapy Treatment Plan Bed Mobility Training Transfer Training Gait Training Therapeutic Exercise Balance Retraining Post Op Education Discharge Planning Hot or Cold Pack Neuromuscular Re-ed Coordination Retraining Manual Therapy Other Recommendations and Next Treatment ambulation, stair climbing, Focus bed mobility Recommendations To Nursing Amount of Assist Needed 1 Person Assist Discharge Recommendations PT Discharge Recommendations Home with Assistance Outpatient PT
--- NOTE | 2018-09-19 11:28 | PM.DS.1 ---
History of Present Illness Date Patient Seen: 09/19/18 Time Patient Seen: 11:29 Chief complaint: Revision TKA 19079 Narrative: 73 year old female who is POD #1 s/p right knee revision. She is progressing well. She has been up with physical therapy as well as up in the room. Her pain has been well controlled. She is tolerating food. She had some issues with incontinence right after surgery but has regained bladder control. She denies any chest pain, shortness of breath, or calf tenderness. Discharge Providers Date of admission: 09/18/18 08:37 Discharge Date: 09/19/18 Primary care physician: Shelbi Nunez MD Consults: 09/18/18 15:31 Consult to Discharge Planning Routine Comment: Consult to Physical Therapy Evaluate & Treat Comment: Physician Instructions: postop TKA protocol Consult to Respiratory Therapy Evaluate & Treat Comment: Physician Instructions: Evaluate and treat Discharge provider: Ale Lawson PA-C Summary Discharge Diagnosis: s/p right knee revision Hospital Course: The patient presents today planned revision of tibial component of total knee with evidence of aseptic loosening. No indication of infection with aspiration. The nature of the procedure including the risks and benefits, alternatives, postoperative course and expected outcome were discussed and all questions answered. Consent was obtained. Operative site confirmed and marked. After informed consent patient was taken to the operating room for revision of the right knee. She tolerated the procedure well with no complications. Since she has been progressing well. She is mobilizing well and has good pain control. She has good support at home with her daughter and present as caregivers. She is being discharged with supply of Oxycodone, Vistaril, and Mobic and has good supply of ASA and tylenol at home. She will follow up in the office in one week. Status at Discharge Cognitive/behavioral status at discharge: oriented Functional status at discharge: uses cane/walker Overall status at discharge: patient is progressing back to baseline Exam Vital Signs (past 8 hours): - 09/19/18 08:00 09/19/18 09:21 09/19/18 09:22 Temperature 97.2 F L Pulse Rate 87 Respiratory Rate 17 Blood Pressure 126/68 Pulse Oximetry 96 98 95 Oxygen Delivery Method Room Air Oxygen Flow Rate 2 Narrative Exam Narrative: Pleasant 73 year old female resting comfortably in chair, in no acute distress. Alert and oriented. Aquacel dressing in place over right knee is clean, dry, and intact with minimal shadow drainage. She is able to actively dorisflex/plantar flex the ankle. Sensation intact in distal extremity with 2+ distal pulses. Calves are compressible and nontender bilaterally. Objective Labs Result Diagrams: 09/19/18 04:53 Labs: Laboratory Results - last 24 hr 09/19/18 04:53 Hgb 13.4 Hct 40.4 Discharge Plan Discharge Plan Patient Disposition: Home Discharge Med Rec/Prescriptions Prescriptions: New acetaminophen 325 mg Tablet 975 mg PO TID Qty: 60 RF: 0 aspirin 81 mg Tablet,Delayed Release (Dr/Ec) 81 mg PO BID Qty: 60 RF: 0 meloxicam [Mobic] 7.5 mg Tablet 15 mg PO 0800 Qty: 60 RF: 0 oxycodone 5 mg Tablet 5 mg PO Q4-6H PRN (Reason: Pain, Moderate (4-6)) Qty: 40 RF: 0 hydroxyzine HCl 25 mg tablet 25 mg PO QID PRN (Reason: spasms) Qty: 30 RF: 0 Continued multivitamin Tablet 1 tab PO DAILY RF: 0 flecainide 150 mg Tablet 150 mg PO Q12H RF: 0 potassium chloride 20 mEq Packet 20 meq PO DAILY RF: 0 levothyroxine 125 mcg Tablet 125 mcg PO DAILY RF: 0 metoprolol succinate 25 mg Tablet Extended Release 24 Hr 25 mg PO QAM RF: 0 metoprolol succinate 25 mg Tablet Extended Release 24 Hr 12.5 mg PO QPM RF: 0 cetirizine 10 mg Capsule 10 mg PO DAILY PRN (Reason: allergies) RF: 0 Celestine-3 2100 1,050-1,200 mg Capsule 1 cap PO DAILY RF: 0 polyethylene glycol 3350 [Miralax] 17 gram/dose Powder 1 dose PO DIRECTED RF: 0 metoprolol tartrate 25 mg Tablet 25 mg PO BID PRN (Reason: Breakthrough afib) RF: 0 aspirin 81 mg tablet,delayed release (DR/EC) 81 mg PO DAILY RF: 0 Follow up/Referrals: Cordell Robertson MD [Physician] - Provider Discharge Instructions Diet: Diet as Tolerated Activity: Weight bear as tolerated Cold/Heat Therapy: Ice packs as needed Skin/Wound/Dressing Care Dressing: Leave dressing in place, will be removed at 2 week post op visit. Other wound treatment: Follow [facility] guide Visit Report/Discharge Packet Instructions: DI for Knee Replacement Discharge Data Primary Care Provider: Shelbi Nunez Attending Provider: Cordell Robertson Admshaina Date/Time: 09/18/18 08:37
[2018-09-19] MEDS: LEVOTHYROXINE 125 MCG TABLET PO (11:34)
[2018-09-19 11:48] VITALS: BP 129/66; PULSE 71; RESP 16; TEMP 36.6; O2SAT 95
--- NOTE | 2018-09-20 08:59 | CM.IDA ---
Late Entry: Pt is a 73 yo female, resident of [facility]. Pt DC 5.1.19, Inpt, POD#1 from a revision/ TKA by Dr Robertson. PCP: Dr Nunez Payer: Michael VALERIO Pt discussed in multidisciplinary rounds Monday morning, no barriers indicated to safe return home as she had planned. Therapy evals were done and pt was cleared to return home w/assist and outpt PT. SHIRLEY Pro
== END 2018-09-19 14:10 | disposition home or self-care (01) | DRG 468 ==
PROVIDERS: Admitting Provider Orthopaedic Surgery; PCP Family Medicine; Visit Provider Orthopaedic Surgery
PROC: 0SPV0JZ Removal of Synthetic Substitute from Right Knee Joint, Tibial Surface, Open Approach (ICD-10-PCS; principal; 2018-09-18 11:15)
DX: T84.032A Mechanical loosening of internal right knee prosthetic joint, initial encounter (principal)
CPT/HCPCS: 36415; 73560; 73590; 85014; 85018; 97116; 97161; C1776; C9290; J0690; J1100; J2250; J2405; J2704; J3010; J3370